=== PATIENT | female | born 1960 | race Caucasian/White ===

== ENCOUNTER 2021-07-07 10:33 | Emergency (ER) | payer OTHER ==
[~2021-07-07] VITALS: Ht 162.6 cm; Wt 90.0 kg
[2021-07-07 10:36] VITALS: BP 146/89
[2021-07-07] MEDS ORDERED: LIDOcaine 1% 30ml preserv. free vial IJ ONE (13:20)
[2021-07-07] MEDS ORDERED: DOXY-411 PO (13:23)
[2021-07-07] MEDS ORDERED: CIPR-202 PO (13:23)
== END 2021-07-07 14:13 | disposition home or self-care (01) ==
LOC: ER 10:33
DX: H61.001 Unspecified perichondritis of right external ear (principal); E11.9 Type 2 diabetes mellitus without complications; Z98.49 Cataract extraction status, unspecified eye; Z88.8 Allergy status to other drugs, medicaments and biological substances; Z79.2 Long term (current) use of antibiotics; Z79.899 Other long term (current) drug therapy
CPT/HCPCS: 10160; 69000; 99283; 99284

== ENCOUNTER 2021-07-10 10:35 | Emergency (ER) | payer OTHER ==
[~2021-07-10] VITALS: Ht 160 cm; Wt 90.0 kg
[~2021-07-10 10:35] MED LIST: CIPR-202 PO; DOXY-411 PO
[2021-07-10 11:01] VITALS: BP 155/92
== END 2021-07-11 00:50 | disposition left against medical advice (07) ==
LOC: ER 10:37
DX: H92.09 Otalgia, unspecified ear (principal); Z53.21 Procedure and treatment not carried out due to patient leaving prior to being seen by health care provider

== ENCOUNTER 2021-07-26 07:53 | Inpatient (IN) | payer OTHER ==
[~2021-07-26] VITALS: Ht 162.6 cm; Wt 95.0 kg
[~2021-07-26 07:53] MED LIST changes: -CIPR-202 PO; -DOXY-411 PO; +sevoflurane 250ml liquid IH ONE
--- NOTE | 2021-07-26 08:31 | NUR ---
pt states while driving to her sons she developed sudden stinging, cold pain behind left eye. Pt report reports developing left side facial numbness, and blurred vision. pt reports no change in these symptoms at this time. Pt shows unsteady gait w/ lean to left side. Pt reports recent ER visit 2 weeks ago for right external ear infection, pt finished abx course " a couple days ago."
[2021-07-26 09:06] LABS: APTT 24 SECONDS (22-32)
[2021-07-26 09:10] LABS: ALANINE AMINOTRANSFERASE 22 U/L (12-78); ALBUMIN 3.5 G/DL (3.4-5.0); ALKALINE PHOSPHATASE 83 IU/L (46-116); ANION GAP 9 (8-16); ASPARTATE AMINO TRANSFERASE 11 U/L (10-37); BILIRUBIN,TOTAL 0.4 MG/DL (0.1-1.0); BLOOD UREA NITROGEN 13 MG/DL (7-18); BUN/CREATININE RATIO 14.6 (6.6-38.0); CALCIUM 9.3 MG/DL (8.5-10.1); CHLORIDE 99 MMOL/L (99-107); CREATININE 0.89 MG/DL (0.40-0.90); GLUCOSE 397 MG/DL (70-104); POTASSIUM 3.9 MMOL/L (3.5-5.1); SODIUM 134 MMOL/L (135-145); TOTAL PROTEIN 7.1 G/DL (6.4-8.2); eGFR 64 ML/MIN
[2021-07-26] MEDS ORDERED: aspirin 325mg tablet PO ONE (09:10)
[2021-07-26 09:12] LABS: BASOPHILS # (AUTO) 0.1 X10'3 (0-0.2); BASOPHILS % (AUTO) 0.8 % (0-1); EOSINOPHILS # (AUTO) 0.6 X10'3 (0-0.9); EOSINOPHILS % (AUTO) 8.7 % (0-6); HEMOGLOBIN 13.9 g/dl (12.0-16.0); LYMPHOCYTES # (AUTO) 1.6 X10'3 (1.1-4.8); LYMPHOCYTES % (AUTO) 23.7 % (21-51); MEAN CORPUSCULAR HEMOGLOBIN 29.6 PG (27.0-31.0); MEAN CORPUSCULAR VOLUME 87.1 FL (78-98); MEAN PLATELET VOLUME 9.8 FL (7.4-10.4); MONOCYTES # (AUTO) 0.5 X10'3 (0-0.9); MONOCYTES % (AUTO) 7.8 % (2-12); NEUTROPHILS # (AUTO) 3.9 X10'3 (1.8-7.7); PLATELET COUNT 256 X10'3 (140-440); RED BLOOD COUNT 4.71 X10'6 (4.20-5.60); RED CELL DISTRIBUTION WIDTH 14.3 % (11.5-14.5); WHITE BLOOD COUNT 6.6 X10'3 (4.5-11.0)
[2021-07-26] MEDS ORDERED: iohexol 350MG/ML 100ml bottle IV ONE (09:28)
[2021-07-26] MEDS ORDERED: clopidogrel 300mg tablet PO ONE (10:55)
[2021-07-26] MEDS ORDERED: morphine 2 MG/ML inj. syringe IV PRN ×2 (13:40)
[2021-07-26] MEDS ORDERED: magnesium hydroxide 30ml (MOM) UD suspension PO PRN (13:40)
[2021-07-26] MEDS ORDERED: mag hydrox/Alum hydrox/simeth 30ml oral suspension PO PRN (13:40)
[2021-07-26] MEDS ORDERED: acetaminophen 325mg tablet PO PRN ×2 (13:40)
[2021-07-26] MEDS ORDERED: HYDROcodone/acetaminophen 5mg/325mg tablet PO PRN (13:40)
[2021-07-26 14:07] LABS: CHOL/HDL RATIO 4.9 (0.00-4.99); CHOLESTEROL 272 MG/DL (0-200); HDL CHOLESTEROL 56 MG/DL (35-60); LDL CHOLESTEROL 165 MG/DL (50-100); TRIGLYCERIDES 268 MG/DL (20-135)
[2021-07-26 15:06] LABS: HEMOGLOBIN A1C 9.8 % (4.5-6.2)
[2021-07-26] MEDS ORDERED: NO HOME MEDS (19:25)
[2021-07-26] MEDS: docusate sod 100mg capsule PO SCH (20:00)
[2021-07-26] MEDS: HYDROcodone/acetaminophen 10/325mg tab PO PRN (20:38)
--- NOTE | 2021-07-26 22:10 | NUR ---
Patient resting in bed. Complaint of right sided ear pain norco given. Vitals stable. Will continue to monitor.
[2021-07-27 07:31] LABS: BASOPHILS # (AUTO) 0.1 X10'3 (0-0.2); BASOPHILS % (AUTO) 0.9 % (0-1); EOSINOPHILS # (AUTO) 0.5 X10'3 (0-0.9); EOSINOPHILS % (AUTO) 8.1 % (0-6); HEMATOCRIT 41.1 % (35.0-45.0); HEMOGLOBIN 13.8 g/dl (12.0-16.0); LYMPHOCYTES # (AUTO) 1.8 X10'3 (1.1-4.8); LYMPHOCYTES % (AUTO) 27.7 % (21-51); MEAN CORPUSCULAR HEMOGLOBIN 29.2 PG (27.0-31.0); MEAN CORPUSCULAR HGB CONC 33.7 g/dL (33.0-36.5); MEAN CORPUSCULAR VOLUME 86.7 FL (78-98); MEAN PLATELET VOLUME 9.1 FL (7.4-10.4); MONOCYTES # (AUTO) 0.5 X10'3 (0-0.9); MONOCYTES % (AUTO) 7.9 % (2-12); NEUTROPHILS # (AUTO) 3.6 X10'3 (1.8-7.7); NEUTROPHILS % (AUTO) 55.4 % (42-75); PLATELET COUNT 252 X10'3 (140-440); RED BLOOD COUNT 4.74 X10'6 (4.20-5.60); WHITE BLOOD COUNT 6.5 X10'3 (4.5-11.0)
[2021-07-27 07:41] LABS: ALBUMIN 3.3 G/DL (3.4-5.0); ANION GAP 5 (8-16); BLOOD UREA NITROGEN 13 MG/DL (7-18); BUN/CREATININE RATIO 17.1 (6.6-38.0); CALCIUM 8.7 MG/DL (8.5-10.1); CHLORIDE 101 MMOL/L (99-107); CREATININE 0.76 MG/DL (0.40-0.90); GLUCOSE 283 MG/DL (70-104); POTASSIUM 4.3 MMOL/L (3.5-5.1); SODIUM 137 MMOL/L (135-145); TOTAL CARBON DIOXIDE 31.4 MMOL/L (24-32); eGFR 77 ML/MIN
[2021-07-27] MEDS: atorvastatin 20mg tablet PO SCH (10:03)
[2021-07-27] MEDS: docusate sod 100mg capsule PO SCH ×2 (10:03→20:00)
[2021-07-27] MEDS: aspirin 325mg tablet, delayed-release (Ecotrin) PO SCH (10:03)
[2021-07-27] MEDS: enoxaparin 40mg/0.4ml syringe SUBCUT SCH (10:03)
--- NOTE | 2021-07-27 10:22 | NUR ---
pt states she does not want the 5-lead ekg monitoring on as she plans to go home after her mri
[2021-07-27] MEDS ORDERED: dextrose 50%-water 50ml dispensing syringe IV PRN ×2 (13:50)
[2021-07-27] MEDS ORDERED: dextrose ORAL solution 15 GM/59 ML bottle PO PRN ×2 (13:50)
[2021-07-27] MEDS ORDERED: glucagon, human recombinant 1mg kit SUBCUT PRN (13:50)
--- NOTE | 2021-07-27 13:50 | NUR ---
spoke with dr alberts regarding pt elevated blood sugars due to diabetes. received verbal to initiate hyperglycemia protocol and order placed as received
[2021-07-27] MEDS: insulin Lispro (HumaLOG) vial - multi-dose SQ SCH ×2 (14:14→19:39)
[2021-07-27] MEDS: HYDROcodone/acetaminophen 10/325mg tab PO PRN ×2 (14:15→22:16)
[2021-07-27] MEDS: ondansetron/PF 4mg/2ml inj IV PRN (18:52)
--- NOTE | 2021-07-27 21:30 | NUR ---
Received report from LYNETTE Alnozo. Awaiting patient arrival to the floor
[2021-07-27 21:40] VITALS: BP 137/73
--- NOTE | 2021-07-27 22:00 | NUR ---
Patient refused DART at this time saying she needs sleep
[2021-07-27] MEDS: insulin glargine (Lantus) pen - multi-dose SQ SCH ×2 (22:15→22:33)
[2021-07-28] VITALS (10 sets, daily range): BP systolic 114–139; BP diastolic 64–84
[2021-07-28 06:23] LABS: BASOPHILS % (AUTO) 0.8 % (0-1); EOSINOPHILS # (AUTO) 0.5 X10'3 (0-0.9); EOSINOPHILS % (AUTO) 9.4 % (0-6); HEMATOCRIT 39.4 % (35.0-45.0); HEMOGLOBIN 13.5 g/dl (12.0-16.0); LYMPHOCYTES # (AUTO) 1.9 X10'3 (1.1-4.8); MEAN CORPUSCULAR HEMOGLOBIN 29.9 PG (27.0-31.0); MEAN CORPUSCULAR HGB CONC 34.4 g/dL (33.0-36.5); MONOCYTES # (AUTO) 0.5 X10'3 (0-0.9); MONOCYTES % (AUTO) 8.8 % (2-12); NEUTROPHILS # (AUTO) 2.7 X10'3 (1.8-7.7); PLATELET COUNT 229 X10'3 (140-440); RED BLOOD COUNT 4.53 X10'6 (4.20-5.60); RED CELL DISTRIBUTION WIDTH 13.9 % (11.5-14.5); WHITE BLOOD COUNT 5.7 X10'3 (4.5-11.0)
[2021-07-28 06:36] LABS: ALBUMIN 3.2 G/DL (3.4-5.0); ANION GAP 5 (8-16); BLOOD UREA NITROGEN 14 MG/DL (7-18); BUN/CREATININE RATIO 15.9 (6.6-38.0); CALCIUM 8.8 MG/DL (8.5-10.1); CHLORIDE 101 MMOL/L (99-107); CREATININE 0.88 MG/DL (0.40-0.90); GLUCOSE 236 MG/DL (70-104); POTASSIUM 4.5 MMOL/L (3.5-5.1); SODIUM 137 MMOL/L (135-145); TOTAL CARBON DIOXIDE 31.4 MMOL/L (24-32); eGFR 65 ML/MIN
--- NOTE | 2021-07-28 06:38 | NUR ---
Problems reprioritized. Patient report given, questions answered & plan of care reviewed with LYNETTE Reina.
[2021-07-28] MEDS: docusate sod 100mg capsule PO SCH ×3 (08:00→20:17)
[2021-07-28] MEDS: enoxaparin 40mg/0.4ml syringe SUBCUT SCH (08:02)
[2021-07-28] MEDS: atorvastatin 20mg tablet PO SCH (08:02)
[2021-07-28] MEDS: aspirin 325mg tablet, delayed-release (Ecotrin) PO SCH (08:02)
[2021-07-28] MEDS: insulin Lispro (HumaLOG) vial - multi-dose SQ SCH ×4 (09:28→23:39)
--- NOTE | 2021-07-28 10:42 | NUR ---
assisting RN with pt care, Dr Tinoco was at bedside to evaluate pt, gave verbal order for vanco for pharmacy to dose, zosyn 3.375 mb IV every 8 hours, wound care consult and CT of ear to eval infection, gave report to primary nurse, Nuno OJEDA
--- NOTE | 2021-07-28 10:59 | NUR ---
Dr Tinoco notified of need for plavix order received to start plavix after Dr Hong sees patients and he ok's use prior to possible surgery. Also ordered increase of lipitor to 80mg daily and decrease asa to 81mg daily.
[2021-07-28] MEDS: vancomycin/NS 1 GM ADD-VANTAGE 250 ML IV SCH ×2 (11:10→23:15)
--- NOTE | 2021-07-28 11:28 | NUR ---
Page Accepted promotional table spacer Message: [id number] GRACIELA. PLEASE CALL DR. NAVA [phone] FROM [facility] REGARDING MRI. Ashley [id number]
[2021-07-28] MEDS ORDERED: iohexol 300mg/ml 100ml inj. ONE (13:36)
[2021-07-28] MEDS: ondansetron/PF 4mg/2ml inj IV PRN (13:58)
[2021-07-28] MEDS ORDERED: ondansetron/PF 4mg/2ml inj IV PRN (14:30)
[2021-07-28] MEDS ORDERED: labetalol 20mg/4ml (5mg/ml) syringe IV PRN (14:30)
[2021-07-28] MEDS ORDERED: hydrALAZINE 20mg/ml inj. IV PRN (14:30)
[2021-07-28] MEDS ORDERED: fentaNYL/PF 50MCG/1 ML 2ML syringe IV PRN ×2 (14:30)
[2021-07-28] MEDS ORDERED: morphine 2 MG/ML inj. syringe IV PRN (14:30)
[2021-07-28] MEDS ORDERED: ringers solution, lacted 1,000 ML IV SCH (14:30)
--- NOTE | 2021-07-28 15:11 | NUR ---
DM Consult: Pt admit DX possible acute CVA hx T2DM A1C 9.8% w/ no PCP or health insurance unable to afford insulin per EMR. TG 268, Chol 272, and LDL 164 on admit. Pt currently NPO in surgery holding per EMR. Pt would benefit from DM/HH diet eds this admit prior to discharge. Will continue to monitor. Addendum: 07/28/21 at [address] Amended: Links added.
[2021-07-28] MEDS ORDERED: bacitracin 15gm ointment TP ONE (15:12)
[2021-07-28] MEDS ORDERED: midazolam 1 mg/ML 2ml injection ONE (15:36)
[2021-07-28] MEDS ORDERED: ondansetron/PF 4mg/2ml inj ONE (15:37)
[2021-07-28] MEDS ORDERED: propofol inj 20 ML IV ONE (15:37)
[2021-07-28] MEDS ORDERED: LIDOcaine 2% (20mg/ml) 5ml vial ONE (15:37)
--- NOTE | 2021-07-28 16:26 | NUR ---
Received from OR via BED IN STABLE CONDITION , accompanied by Anesthesiologist and PATROL JUDGE report given by PATROL JUDGE AND Anesthesiolgist. Addendum: 07/28/21 at 1734 by Marcelle Díaz RN Amended: Links added.
[2021-07-28] MEDS: morphine 4 MG/ML inj SYRINge IV PRN ×2 (16:54→17:23)
--- NOTE | 2021-07-28 17:26 | NUR ---
PATIENT DISCHARGED FROM PACU IN STABLE CONDITION AFTER RRPORT GIVEN TO RN TAKING OVER PATIENTS CARE. PATIENT TRANSFERRED TO ROOM 3015 VIA BED WITH RN. Addendum: 07/28/21 at 1734 by Marcelle Díaz RN Amended: Links added.
[2021-07-28] MEDS: piperacillin/tazo 3.375gm/50ml 50 ML IV SCH (18:01)
[2021-07-28] MEDS: HYDROcodone/acetaminophen 10/325mg tab PO PRN (20:39)
[2021-07-28] MEDS: insulin glargine (Lantus) pen - multi-dose SQ SCH (23:37)
[2021-07-29] MEDS: HYDROcodone/acetaminophen 10/325mg tab PO PRN ×3 (00:34→15:53)
[2021-07-29] MEDS: piperacillin/tazo 3.375gm/50ml 50 ML IV SCH ×3 (00:50→15:48)
[2021-07-29 02:00] VITALS: BP 122/64
--- NOTE | 2021-07-29 05:15 | NUR ---
Twice during the shift pt left her room to sit in the hallway due to c/o her roommate making too much noise preventing her from sleeping. Neurologically pt is stable, AAOx4, reports some improvement in her right facial numbness. Her bilateral hand grasps are strong. Her gait is slightly unsteady and she c/o that her leg bothering her is the reason her gait is as it is. At the time of observing her, she was walking in the hallway pushing her IV pole, and wearing scrubs pants that were somewhat long for her. She has been able to independently ambulate to the bathroom multiple times during the shift without difficulty Addendum: 07/29/21 at 0523 by Juli Bonner RN Charge nurse made aware of pt leaving her room for the above stated reasons
[2021-07-29 06:00] VITALS: BP 121/77
--- NOTE | 2021-07-29 06:30 | NUR ---
Change of shift report given to Abbie OJEDA Addendum: 07/29/21 at 0630 by Juli Bonner RN Amended: Links added.
--- NOTE | 2021-07-29 07:04 | NUR ---
Patient in room U 3015. I have received report from LYNETTE Bustos and had the opportunity to ask questions and assume patient care. Patient awake and in no acute distress. Patient expressed to night LYNETTE Bustos that she had wanted to leave AMA because she doesn't want to be in the same room as her roommate. I informed the patient that we had something in the works for the patient to be able to change rooms. The patient was very frustrated and walked down the hallway to try and get some sleep.
[2021-07-29] MEDS: docusate sod 100mg capsule PO SCH ×2 (08:00→19:47)
[2021-07-29] MEDS ORDERED: aspirin 325mg tablet, delayed-release (Ecotrin) PO SCH (08:00)
[2021-07-29] MEDS: clopidogrel 75mg tablet PO SCH (08:26)
[2021-07-29] MEDS: aspirin 81mg, enteric-coated 1 TAB TABLET.DR PO SCH (08:26)
[2021-07-29] MEDS: atorvastatin 20mg tablet PO SCH (08:27)
[2021-07-29] MEDS: enoxaparin 40mg/0.4ml syringe SUBCUT SCH (08:28)
[2021-07-29] MEDS: insulin Lispro (HumaLOG) vial - multi-dose SQ SCH ×2 (08:34→22:12)
[2021-07-29 09:10] LABS: BASOPHILS % (AUTO) 0.2 % (0-1); EOSINOPHILS % (AUTO) 0.1 % (0-6); HEMATOCRIT 39.9 % (35.0-45.0); HEMOGLOBIN 13.2 g/dl (12.0-16.0); LYMPHOCYTES # (AUTO) 1.1 X10'3 (1.1-4.8); LYMPHOCYTES % (AUTO) 14.8 % (21-51); MEAN CORPUSCULAR HGB CONC 33.1 g/dL (33.0-36.5); MEAN CORPUSCULAR VOLUME 87.6 FL (78-98); MEAN PLATELET VOLUME 9.4 FL (7.4-10.4); MONOCYTES # (AUTO) 0.3 X10'3 (0-0.9); MONOCYTES % (AUTO) 4.6 % (2-12); NEUTROPHILS # (AUTO) 5.7 X10'3 (1.8-7.7); NEUTROPHILS % (AUTO) 80.3 % (42-75); PLATELET COUNT 255 X10'3 (140-440); RED BLOOD COUNT 4.55 X10'6 (4.20-5.60); RED CELL DISTRIBUTION WIDTH 14.1 % (11.5-14.5); WHITE BLOOD COUNT 7.1 X10'3 (4.5-11.0)
[2021-07-29 09:30] LABS: ALBUMIN 3.1 G/DL (3.4-5.0); ANION GAP 8 (8-16); BLOOD UREA NITROGEN 17 MG/DL (7-18); BUN/CREATININE RATIO 17.9 (6.6-38.0); CALCIUM 8.6 MG/DL (8.5-10.1); CHLORIDE 99 MMOL/L (99-107); CREATININE 0.95 MG/DL (0.40-0.90); GLUCOSE 244 MG/DL (70-104); POTASSIUM 4.2 MMOL/L (3.5-5.1); SODIUM 135 MMOL/L (135-145); TOTAL CARBON DIOXIDE 27.9 MMOL/L (24-32); eGFR 60 ML/MIN
[2021-07-29 11:00] VITALS: BP 122/56
--- NOTE | 2021-07-29 11:20 | NUR ---
f/u 07/29: Pt noted to be agitated and somewhat uncooperative. Written DM/Heart Healthy diet ed w/ ALFIE contact info placed in pt chart. Addendum: 07/29/21 at [address] Amended: Links added.
[2021-07-29] MEDS: vancomycin/NS 1 GM ADD-VANTAGE 250 ML IV SCH ×2 (12:35→23:19)
--- NOTE | 2021-07-29 13:30 | NUR ---
For lunch, patient's blood sugar was 127 and refused her lunch. No humalog coverage given at this time.
--- NOTE | 2021-07-29 14:44 | NUR ---
WOUND INFECTION EDUCATION PROVIDED BY WOUND CARE 1. Patient instructed to call their primary doctor, or go the ED immediately if any of the following symptoms occur: * Increased pain in wound * Increase in drainage from the wound * Redness in the skin surrounding the wound * Warmth in the skin surrounding the wound * Bleeding from the wound * Temperature of 101 or greater 2. If any of these occur while in the hospital tell a nurse immediately. Addendum: 07/29/21 at 1445 by Chiara Adam RN Amended: Links added.
[2021-07-29] MEDS ORDERED: normal saline 1000ml 1,000 ML IV ONE (17:10)
--- NOTE | 2021-07-29 17:26 | NUR ---
Orders for tele neuro consult put in per Dr. Tinoco for phone consultation for them to review the MRI results for their recommendations.
[2021-07-29 18:00] VITALS: BP 141/75
[2021-07-29] MEDS ORDERED: amLODIPine 5mg tablet PO ONE (18:00)
--- NOTE | 2021-07-29 18:24 | NUR ---
Problems reprioritized. Patient report given, questions answered & plan of care reviewed with LYNETTE Barraza. Patient stable at transfer of care.
--- NOTE | 2021-07-29 18:54 | NUR ---
Gloria pt's niece called. enquiring about pt's condition, updated on current stable status, (her call back [phone]) Addendum: 07/29/21 at 1857 by Christi Bonner RN Wrong pt. Incorrectly documented, meant for another pt.
[2021-07-29] MEDS: lactobacillus rhamnosus 10,000 MMU CELLS/CAPSULE PO SCH (19:46)
[2021-07-29] MEDS: normal saline 1000ml 1,000 ML IV SCH (21:26)
[2021-07-29 22:00] VITALS: BP 127/63
[2021-07-29] MEDS: insulin glargine (Lantus) pen - multi-dose SQ SCH (22:14)
[2021-07-29] MEDS ORDERED: VANCOMYCIN LEVEL IV ONE (22:30)
--- NOTE | 2021-07-29 22:30 | NUR ---
Vanco level sent to lab, as per order.
[2021-07-30] MEDS: piperacillin/tazo 3.375gm/50ml 50 ML IV SCH ×2 (01:09→08:00)
[2021-07-30 02:00] VITALS: BP 115/70
[2021-07-30] MEDS: normal saline 1000ml 1,000 ML IV SCH (02:30)
[2021-07-30 06:00] VITALS: BP 112/68
--- NOTE | 2021-07-30 06:17 | NUR ---
Problems reprioritized. Patient report given, questions answered & plan of care reviewed with Justine.
--- NOTE | 2021-07-30 06:30 | NUR ---
Patient in room PCU 3015. I have received report from Christi Benavides RN and had the opportunity to ask questions and assume patient care.
[2021-07-30 07:04] LABS: BASOPHILS # (AUTO) 0.1 X10'3 (0-0.2); EOSINOPHILS # (AUTO) 0.4 X10'3 (0-0.9); EOSINOPHILS % (AUTO) 7.3 % (0-6); HEMATOCRIT 38.1 % (35.0-45.0); HEMOGLOBIN 12.7 g/dl (12.0-16.0); LYMPHOCYTES # (AUTO) 2.1 X10'3 (1.1-4.8); LYMPHOCYTES % (AUTO) 37.2 % (21-51); MEAN CORPUSCULAR HEMOGLOBIN 29.1 PG (27.0-31.0); MEAN CORPUSCULAR HGB CONC 33.4 g/dL (33.0-36.5); MEAN CORPUSCULAR VOLUME 87.4 FL (78-98); MEAN PLATELET VOLUME 9.3 FL (7.4-10.4); MONOCYTES # (AUTO) 0.4 X10'3 (0-0.9); MONOCYTES % (AUTO) 7.1 % (2-12); NEUTROPHILS # (AUTO) 2.6 X10'3 (1.8-7.7); NEUTROPHILS % (AUTO) 47.4 % (42-75); PLATELET COUNT 250 X10'3 (140-440); RED BLOOD COUNT 4.36 X10'6 (4.20-5.60); RED CELL DISTRIBUTION WIDTH 13.9 % (11.5-14.5); WHITE BLOOD COUNT 5.5 X10'3 (4.5-11.0)
[2021-07-30 07:32] LABS: ANION GAP 6 (8-16); BLOOD UREA NITROGEN 14 MG/DL (7-18); BUN/CREATININE RATIO 17.9 (6.6-38.0); CALCIUM 8.3 MG/DL (8.5-10.1); CHLORIDE 107 MMOL/L (99-107); CREATININE 0.78 MG/DL (0.40-0.90); GLUCOSE 117 MG/DL (70-104); MAGNESIUM 1.7 MG/DL (1.5-2.4); PHOSPHORUS 4.5 MG/DL (2.3-4.5); POTASSIUM 3.9 MMOL/L (3.5-5.1); SODIUM 142 MMOL/L (135-145); TOTAL CARBON DIOXIDE 28.7 MMOL/L (24-32); eGFR 75 ML/MIN
[2021-07-30] MEDS: enoxaparin 40mg/0.4ml syringe SUBCUT SCH (08:00)
[2021-07-30] MEDS: aspirin 81mg, enteric-coated 1 TAB TABLET.DR PO SCH (08:00)
[2021-07-30] MEDS: docusate sod 100mg capsule PO SCH (08:00)
[2021-07-30] MEDS ORDERED: lisinopril 10 MG tablet PO SCH (08:00)
[2021-07-30] MEDS ORDERED: amLODIPine 5mg tablet PO SCH (08:00)
[2021-07-30] MEDS: lactobacillus rhamnosus 10,000 MMU CELLS/CAPSULE PO SCH (08:00)
[2021-07-30] MEDS ORDERED: VANCOmycin 1250MG/NS 250ml Bag 250 ML IV SCH (09:00)
[2021-07-30] MEDS ORDERED: CLOP75TA34 PO (09:20)
[2021-07-30] MEDS ORDERED: CEPH-585 PO (09:20)
[2021-07-30] MEDS ORDERED: ATOR20TA66 PO (09:20)
[2021-07-30] MEDS ORDERED: AMA1T PO (09:20)
[2021-07-30] MEDS ORDERED: METF-1203 PO (09:20)
[2021-07-30] MEDS ORDERED: ASPI-1071 PO (09:20)
[2021-07-30] MEDS ORDERED: LINA5TAB4 PO (09:20)
[2021-07-30] MEDS ORDERED: LACT1CAP26 PO (09:20)
[2021-07-30] MEDS ORDERED: SULF1TAB49 PO (09:20)
[2021-07-30] MEDS: clopidogrel 75mg tablet PO SCH (10:19)
[2021-07-30 10:20] VITALS: BP_SYST 112
[2021-07-30] MEDS: atorvastatin 20mg tablet PO SCH (10:20)
--- NOTE | 2021-07-30 12:30 | NUR ---
Patient is stable for discharge per MD. Patient has been educated and given the opportunity to ask questions about her diagnosis and new medications. All questions answered. Patients PIV was removed with canula intact and telemetry was discontinued. Patient was walked down by a ACQUISITIONS ANALYST to her vehicle to drive home.
[2021-07-31] MEDS ORDERED: VANCOMYCIN LEVEL IV ONE (20:30)
== END 2021-07-30 12:48 | disposition home or self-care (01) | DRG 65 ==
LOC: ER 07:54 → ED HOLD 13:42 → EDBEDREQ 23:38 → PCU 3S 07-27 20:30
PROVIDERS: ADMIT Internal Medicine; ATTEND Internal Medicine
PROC: B3251ZZ Computerized Tomography (CT Scan) of Bilateral Common Carotid Arteries using Low Osmolar Contrast (ICD-10-PCS; 2021-07-26)
PROC: B32G1ZZ Computerized Tomography (CT Scan) of Bilateral Vertebral Arteries using Low Osmolar Contrast (ICD-10-PCS; 2021-07-26)
PROC: B32R1ZZ Computerized Tomography (CT Scan) of Intracranial Arteries using Low Osmolar Contrast (ICD-10-PCS; 2021-07-26)
PROC: B3281ZZ Computerized Tomography (CT Scan) of Bilateral Internal Carotid Arteries using Low Osmolar Contrast (ICD-10-PCS; 2021-07-26)
PROC: 09900ZZ Drainage of Right External Ear, Open Approach (ICD-10-PCS; principal; 2021-07-28 15:55)
DX: I63.9 Cerebral infarction, unspecified (principal); G45.0 Vertebro-basilar artery syndrome; E11.65 Type 2 diabetes mellitus with hyperglycemia; I10 Essential (primary) hypertension; H53.8 Other visual disturbances; R27.0 Ataxia, unspecified; H66.41 Suppurative otitis media, unspecified, right ear; S00.431A Contusion of right ear, initial encounter; X58.XXXA Exposure to other specified factors, initial encounter; Z20.822 Contact with and (suspected) exposure to COVID-19; Z79.02 Long term (current) use of antithrombotics/antiplatelets; Z79.82 Long term (current) use of aspirin; Z83.3 Family history of diabetes mellitus; Z91.14 Patient's other noncompliance with medication regimen; Z91.19 Patient's noncompliance with other medical treatment and regimen; Z88.5 Allergy status to narcotic agent; Z90.49 Acquired absence of other specified parts of digestive tract; Y93.89 Activity, other specified; Y92.89 Other specified places as the place of occurrence of the external cause; Y99.8 Other external cause status
CPT/HCPCS: 93306; 99285; Z7506; 36415; 70487; 70551; 71045; 80048; 80053; 80061; 80202; 82948; 83036; 83735; 83880; 84100; 84484; 85025; 85610; 85651; 85730; 87070; 87075; 87081; 87635; 93005; 97110; 97116; 97163; 97530; A4618; A6266; A6449; A7000; G0378; J1650; J1815; J2250; J2270; J2405; J2543; J2704; J3370; J3490; J7030; J7120; Q9967

== ENCOUNTER 2021-08-26 10:05 | Inpatient (IN) | payer OTHER ==
[2021-08-26] VITALS (9 sets, daily range): BP systolic 111–182; BP diastolic 63–156
[~2021-08-26] VITALS: Ht 162.6 cm; Wt 86.0 kg
[~2021-08-26 10:05] MED LIST changes: +AMA1T PO; +ASPI-1071 PO; +ATOR20TA66 PO; +CEPH-585 PO; +CLOP75TA34 PO; +LACT1CAP26 PO; +LINA5TAB4 PO; +METF-1203 PO; +SULF1TAB49 PO; -sevoflurane 250ml liquid IH ONE
[2021-08-26] MEDS ORDERED: normal saline 1000ML IV soln IV ONE (10:25)
[2021-08-26] MEDS ORDERED: aspirin 325mg tablet, delayed-release (Ecotrin) PO ONE (10:30)
[2021-08-26] MEDS ORDERED: ondansetron/PF 4mg/2ml inj IV ONE ×3 (10:30→15:10)
[2021-08-26 10:47] LABS: BASOPHILS # (AUTO) 0.1 X10'3 (0-0.2); BASOPHILS % (AUTO) 0.4 % (0-1); EOSINOPHILS # (AUTO) 0.3 X10'3 (0-0.9); EOSINOPHILS % (AUTO) 2.1 % (0-6); LYMPHOCYTES # (AUTO) 3.3 X10'3 (1.1-4.8); LYMPHOCYTES % (AUTO) 21.9 % (21-51); MEAN CORPUSCULAR HEMOGLOBIN 29.5 PG (27.0-31.0); MEAN CORPUSCULAR HGB CONC 31.8 g/dL (33.0-36.5); MEAN CORPUSCULAR VOLUME 92.7 FL (78-98); MEAN PLATELET VOLUME 9.5 FL (7.4-10.4); MONOCYTES % (AUTO) 6.6 % (2-12); NEUTROPHILS # (AUTO) 10.4 X10'3 (1.8-7.7); PLATELET COUNT 365 X10'3 (140-440); RED BLOOD COUNT 2.11 X10'6 (4.20-5.60); RED CELL DISTRIBUTION WIDTH 15.4 % (11.5-14.5)
[2021-08-26 10:52] LABS: HEMOGLOBIN 6.2 g/dl (12.0-16.0)
[2021-08-26 10:53] LABS: HEMATOCRIT 19.5 % (35.0-45.0)
[2021-08-26 10:58] LABS: ALANINE AMINOTRANSFERASE 20 U/L (12-78); ALBUMIN 3.3 G/DL (3.4-5.0); ALBUMIN/GLOBULIN RATIO 1.2 (1.1-1.5); ALKALINE PHOSPHATASE 61 IU/L (46-116); ANION GAP 23 (8-16); ASPARTATE AMINO TRANSFERASE 29 U/L (10-37); BILIRUBIN,TOTAL 0.5 MG/DL (0.1-1.0); BLOOD UREA NITROGEN 25 MG/DL (7-18); BUN/CREATININE RATIO 23.1 (6.6-38.0); CALCIUM 7.9 MG/DL (8.5-10.1); CHLORIDE 98 MMOL/L (99-107); CREATININE 1.08 MG/DL (0.40-0.90); GLUCOSE 356 MG/DL (70-104); MAGNESIUM 1.5 MG/DL (1.5-2.4); POTASSIUM 4.2 MMOL/L (3.5-5.1); SODIUM 135 MMOL/L (135-145); TOTAL PROTEIN 6.1 G/DL (6.4-8.2); eGFR 51 ML/MIN
--- NOTE | 2021-08-26 11:00 | NUR ---
ABOVE LAB REPORTED TO LYNETTE ROBLEDO AND REBEKA HERNANDEZ
--- NOTE | 2021-08-26 11:00 | NUR ---
LAB CALLED TROP 1366, HGB 6.2
[2021-08-26 11:02] LABS: TOTAL CARBON DIOXIDE 13.9 MMOL/L (24-32)
[2021-08-26] MEDS ORDERED: potassium Cl 20 mEq/100mL bag IV ONE (11:10)
[2021-08-26] MEDS ORDERED: potassium CL 10mEq/100ml bag 100 ML IV SCH (11:25)
[2021-08-26] MEDS ORDERED: tranexamic acid 1gm/0.7% sal. 100 ML IV ONE (11:40)
[2021-08-26] MEDS ORDERED: DESMOPRESSIN IV ONE (11:45)
[2021-08-26] MEDS ORDERED: NORMAL SALINE IV ONE (11:45)
--- NOTE | 2021-08-26 11:51 | NUR ---
Assuming care. Dr Costello aware of pt/VS
[2021-08-26] MEDS ORDERED: morphine 4 MG/ML inj SYRINge IV ONE ×2 (11:55→15:10)
[2021-08-26] MEDS ORDERED: pantoprazole 40MG/NS 100ML BAG 100 ML IV ONE (12:00)
[2021-08-26] MEDS: pantoprazole 40MG/NS 100ML BAG 100 ML IV SCH ×4 (12:01→21:00)
[2021-08-26 12:02] LABS: CLARITY,URINE CLEAR (Clear); COLOR,URINE YELLOW (Yellow); GLUCOSE, URINE >=1000 mg/dl (Neg); KETONES,URINE >=80 mg/dl (Neg); LEUKOCYTE ESTERASE ,URINE NEGATIVE (Neg); NITRITES, URINE NEGATIVE (Neg); OCCULT BLOOD,URINE NEGATIVE (Neg); PROTEIN,URINE NEGATIVE (Neg); UROBILINOGEN,URINE 0.2 E.U/dL (0.2-1.0)
--- NOTE | 2021-08-26 12:05 | NUR ---
per dr. millard hold transexamic acid and desmopressin for now.
[2021-08-26 12:11] LABS: APTT 20 SECONDS (22-32)
[2021-08-26 12:12] LABS: UA COLLECTION TYPE FOLEY CATH
[2021-08-26 12:14] LABS: BACTERIA,URINE FEW /HPF (Neg); RBC,URINE NONE SEEN /HPF (0-2); WBC,URINE 0-4 /HPF (0-4)
[2021-08-26 12:15] LABS: SQUAMOUS EPITHELIAL CELL,UR FEW /LPF (FEW)
[2021-08-26] MEDS ORDERED: iohexol 350MG/ML 100ml bottle IV ONE ×2 (12:24→12:58)
[2021-08-26] MEDS ORDERED: insulin regular, human 10 units/0.1 ml syringe IV ONE (12:25)
[2021-08-26] MEDS ORDERED: LORazepam 2 mg/ml vial IV ONE (12:45)
[2021-08-26] MEDS ORDERED: CefTRIAXone/D5W-Rocephin 1gm 50 ML IV ONE (13:15)
--- NOTE | 2021-08-26 13:33 | NUR ---
First unit of blood started now at 75 ml/hr, this RN at bedside. Pt has been to CT
--- NOTE | 2021-08-26 14:11 | NUR ---
Rate of blood increased to 200 ml/hr, pt tolerating well
[2021-08-26 14:24] LABS: ABG BASE EXCESS -16.3 mmol/L (-2.0-2.0); ABG HCO3 9.8 mmol/L (22.0-26.0); ABG OXYGEN SATURATION 93.8 % (94-97); ABG PCO2 (T) 23.8 mmHg (32.0-45.0); ABG PO2 (T) 83.6 mmHg (75.0-100.0); ALLEN'S TEST POSITIVE; FCOHb 0.4 % (0.0-3.9); FMetHb 0.5 % (0.0-1.5); PATIENT TEMPERATURE 36.4; TOTAL HEMOGLOBIN 6.9 G/dl (12.0-16.0)
[2021-08-26] MEDS ORDERED: METF-438 PO (14:31)
[2021-08-26] MEDS ORDERED: ASPI-1071 PO (14:31)
[2021-08-26] MEDS ORDERED: ATOR80TA PO (14:31)
[2021-08-26] MEDS ORDERED: ASPI-280 PO (14:31)
[2021-08-26] MEDS ORDERED: LISI5TAB22 PO (14:31)
[2021-08-26] MEDS ORDERED: GLIM2TAB6 PO (14:31)
[2021-08-26] MEDS ORDERED: LINA5TAB4 PO (14:31)
[2021-08-26] MEDS: MESSAGE TO NURSING PO SCH (15:23)
--- NOTE | 2021-08-26 15:36 | NUR ---
2ND UNIT OF BLOOD STARTED NOW AT 75 ML/HR, NURSE AT BEDSIDE
--- NOTE | 2021-08-26 16:02 | NUR ---
blood transfusion increased to 200ml/hr
[2021-08-26] MEDS ORDERED: bisacodyl 10mg suppository rectal RC PRN (16:05)
[2021-08-26] MEDS ORDERED: acetaminophen 325mg tablet PO PRN (16:05)
[2021-08-26] MEDS ORDERED: DEXTROSE 15 GM of carb/4 tabs (each vial/BOTTLE has 4 tablets) PO PRN ×2 (16:05)
[2021-08-26] MEDS ORDERED: glucagon, human recombinant 1mg kit SUBCUT PRN (16:05)
[2021-08-26] MEDS ORDERED: ondansetron/PF 4mg/2ml inj IV PRN (16:05)
[2021-08-26] MEDS ORDERED: magnesium 2GM in 50ml NS 50 ML IV PRN (16:05)
[2021-08-26] MEDS ORDERED: magnesium 4gm in 100ml NS 100 ML IV PRN (16:05)
[2021-08-26] MEDS ORDERED: MESSAGE TO PHARMACY PO ONE (16:05)
[2021-08-26] MEDS ORDERED: dextrose 50%-water 50ml dispensing syringe IV PRN ×2 (16:05)
[2021-08-26] MEDS ORDERED: potassium Cl 20 mEq SR tablet PO PRN ×2 (16:05)
[2021-08-26] MEDS ORDERED: PERFLUTREN PROTEIN-A MICROSPHR (Optison) 0.22 MG/ML 3ML VIAL IV PRN (16:05)
[2021-08-26] MEDS ORDERED: vancomycin/NS 1 GM ADD-VANTAGE 250 ML IV SCH (16:25)
--- NOTE | 2021-08-26 17:34 | NUR ---
Pt arrived to the floor from ED. Transferred from stretcher to bed. Protonix drip is going at 20ml/hr. Pt is alert, but very sleepy. Denies any chest pain presently. Oriented to room and call light.
[2021-08-26] MEDS: sodium bicarbonate (8.4%) inj. 150 MEQ in dextrose 5%-water 1,000 ML IV SCH (17:40)
--- NOTE | 2021-08-26 18:06 | NUR ---
Paged Dr. Cook regarding critical troponin PAGER ID: [phone] MESSAGE: [id number] Ely Cook, Critical Troponin just came back for this patient: [phone] Thanks, December RN PCU ext [phone]
[2021-08-26] MEDS: morphine 2 MG/ML inj. syringe IV PRN (19:16)
[2021-08-26] MEDS: K and/or MAG REPLACEMENT MC SCH (20:00)
[2021-08-26] MEDS: insulin Lispro (HumaLOG) vial - multi-dose SQ SCH (20:19)
[2021-08-26] MEDS: insulin glargine (Lantus) pen - multi-dose SQ SCH (21:00)
[2021-08-27] MEDS: pantoprazole 40MG/NS 100ML BAG 100 ML IV SCH ×5 (01:00→22:10)
[2021-08-27] MEDS: normal saline 1000ml 1,000 ML IV SCH ×2 (02:05→22:05)
[2021-08-27] MEDS: sodium bicarbonate (8.4%) inj. 150 MEQ in dextrose 5%-water 1,000 ML IV SCH ×2 (03:45→17:27)
[2021-08-27] MEDS: morphine 2 MG/ML inj. syringe IV PRN ×4 (03:47→20:02)
[2021-08-27] MEDS: VANCOMYCIN 1GM/200ML IVPB 200 ML IV SCH ×2 (04:00→17:27)
--- NOTE | 2021-08-27 05:49 | NUR ---
Eduardo herzog, pharmacy will bring it on their rounds.
[2021-08-27 06:00] VITALS: BP 92/52
[2021-08-27 06:48] LABS: BASOPHILS % (AUTO) 0.2 % (0-1); EOSINOPHILS # (AUTO) 0.2 X10'3 (0-0.9); EOSINOPHILS % (AUTO) 2.4 % (0-6); HEMOGLOBIN 7.3 g/dl (12.0-16.0); LYMPHOCYTES # (AUTO) 1.1 X10'3 (1.1-4.8); LYMPHOCYTES % (AUTO) 15.9 % (21-51); MEAN CORPUSCULAR HEMOGLOBIN 30.4 PG (27.0-31.0); MEAN CORPUSCULAR VOLUME 89.6 FL (78-98); MEAN PLATELET VOLUME 8.3 FL (7.4-10.4); MONOCYTES # (AUTO) 0.4 X10'3 (0-0.9); NEUTROPHILS # (AUTO) 5.2 X10'3 (1.8-7.7); NEUTROPHILS % (AUTO) 75.5 % (42-75); PLATELET COUNT 214 X10'3 (140-440); RED BLOOD COUNT 2.39 X10'6 (4.20-5.60); WHITE BLOOD COUNT 6.9 X10'3 (4.5-11.0)
[2021-08-27 06:58] LABS: HEMATOCRIT 21.4 % (35.0-45.0)
--- NOTE | 2021-08-27 07:09 | NUR ---
[address] [place]: Critical labs Hgb 7.3, htc 21.4. Reported to
[2021-08-27 07:16] LABS: ALANINE AMINOTRANSFERASE 30 U/L (12-78); ALBUMIN 2.8 G/DL (3.4-5.0); ALBUMIN/GLOBULIN RATIO 1.3 (1.1-1.5); ANION GAP 18 (8-16); ASPARTATE AMINO TRANSFERASE 102 U/L (10-37); BILIRUBIN,TOTAL 0.3 MG/DL (0.1-1.0); BLOOD UREA NITROGEN 14 MG/DL (7-18); BUN/CREATININE RATIO 17.5 (6.6-38.0); CALCIUM 6.6 MG/DL (8.5-10.1); CHLORIDE 103 MMOL/L (99-107); GLUCOSE 235 MG/DL (70-104); MAGNESIUM 1.5 MG/DL (1.5-2.4); SODIUM 142 MMOL/L (135-145); TOTAL CARBON DIOXIDE 21.3 MMOL/L (24-32); eGFR 72 ML/MIN
--- NOTE | 2021-08-27 07:18 | NUR ---
Patient in room PCU 3013. I have received report from Denice and had the opportunity to ask questions and assume patient care.
[2021-08-27] MEDS: MESSAGE TO NURSING PO SCH (08:00)
[2021-08-27] MEDS: K and/or MAG REPLACEMENT MC SCH ×2 (08:00→20:00)
[2021-08-27] MEDS ORDERED: CefTRIAXone/D5W-Rocephin 1gm 100 ML IV SCH (08:00)
[2021-08-27 11:00] VITALS: BP 105/53
[2021-08-27] MEDS: insulin Lispro (HumaLOG) vial - multi-dose SQ SCH ×3 (11:23→22:06)
[2021-08-27 14:24] LABS: HEMATOCRIT 22.3 % (35.0-45.0); HEMOGLOBIN 7.6 g/dl (12.0-16.0); MEAN CORPUSCULAR HEMOGLOBIN 30.3 PG (27.0-31.0); MEAN CORPUSCULAR HGB CONC 33.9 g/dL (33.0-36.5); MEAN CORPUSCULAR VOLUME 89.4 FL (78-98); MEAN PLATELET VOLUME 8.4 FL (7.4-10.4); PLATELET COUNT 202 X10'3 (140-440); RED CELL DISTRIBUTION WIDTH 14.9 % (11.5-14.5); WHITE BLOOD COUNT 7.8 X10'3 (4.5-11.0)
[2021-08-27 15:00] VITALS: BP 106/69
[2021-08-27 18:00] VITALS: BP 113/64
[2021-08-27 22:00] VITALS: BP 135/78
[2021-08-27] MEDS: insulin glargine (Lantus) pen - multi-dose SQ SCH (22:04)
--- NOTE | 2021-08-27 23:12 | NUR ---
Patient requested med to help her sleep page Dr Mireles awaiting authors motivational back.
[2021-08-28] VITALS (10 sets, daily range): BP systolic 90–127; BP diastolic 44–89
[2021-08-28] MEDS: morphine 2 MG/ML inj. syringe IV PRN ×3 (01:17→21:45)
[2021-08-28] MEDS ORDERED: temazepam 15mg capsule PO ONE (01:20)
[2021-08-28] MEDS: pantoprazole 40MG/NS 100ML BAG 100 ML IV SCH ×4 (01:20→21:42)
[2021-08-28] MEDS: sodium bicarbonate (8.4%) inj. 150 MEQ in dextrose 5%-water 1,000 ML IV SCH (02:45)
[2021-08-28] MEDS ORDERED: VANCOMYCIN LEVEL IV ONE (03:30)
--- NOTE | 2021-08-28 03:47 | NUR ---
Patient is a very hard stick unable to obtain blood call placed to lab spoke with Bill awaiting on tech to draw blood.
[2021-08-28 05:14] LABS: BASOPHILS % (AUTO) 0.4 % (0-1); EOSINOPHILS # (AUTO) 0.4 X10'3 (0-0.9); EOSINOPHILS % (AUTO) 5.4 % (0-6); HEMATOCRIT 23.1 % (35.0-45.0); HEMOGLOBIN 7.7 g/dl (12.0-16.0); LYMPHOCYTES # (AUTO) 0.9 X10'3 (1.1-4.8); LYMPHOCYTES % (AUTO) 12.9 % (21-51); MEAN CORPUSCULAR HGB CONC 33.4 g/dL (33.0-36.5); MEAN CORPUSCULAR VOLUME 89.7 FL (78-98); MEAN PLATELET VOLUME 8.2 FL (7.4-10.4); MONOCYTES # (AUTO) 0.4 X10'3 (0-0.9); MONOCYTES % (AUTO) 5.9 % (2-12); NEUTROPHILS # (AUTO) 5.3 X10'3 (1.8-7.7); NEUTROPHILS % (AUTO) 75.4 % (42-75); PLATELET COUNT 213 X10'3 (140-440); RED BLOOD COUNT 2.57 X10'6 (4.20-5.60); RED CELL DISTRIBUTION WIDTH 14.8 % (11.5-14.5)
[2021-08-28 05:25] LABS: ALANINE AMINOTRANSFERASE 25 U/L (12-78); ALBUMIN 2.6 G/DL (3.4-5.0); ALBUMIN/GLOBULIN RATIO 1.1 (1.1-1.5); ALKALINE PHOSPHATASE 63 IU/L (46-116); ANION GAP 11 (8-16); ASPARTATE AMINO TRANSFERASE 60 U/L (10-37); BILIRUBIN,TOTAL 0.3 MG/DL (0.1-1.0); BLOOD UREA NITROGEN 6 MG/DL (7-18); CALCIUM 6.9 MG/DL (8.5-10.1); CHLORIDE 102 MMOL/L (99-107); CREATININE 0.75 MG/DL (0.40-0.90); GLUCOSE 206 MG/DL (70-104); MAGNESIUM 1.3 MG/DL (1.5-2.4); POTASSIUM 3.3 MMOL/L (3.5-5.1); SODIUM 141 MMOL/L (135-145); TOTAL CARBON DIOXIDE 28.1 MMOL/L (24-32); TOTAL PROTEIN 4.9 G/DL (6.4-8.2); VANCOMYCIN,TROUGH 5.1 UG/ML (6.0-14.0); eGFR 78 ML/MIN
[2021-08-28] MEDS: VANCOMYCIN 1GM/200ML IVPB 200 ML IV SCH (05:25)
[2021-08-28] MEDS ORDERED: MIDAZolam 1 MG/ML 5ML VIAL ONE (07:15)
[2021-08-28] MEDS ORDERED: fentaNYL/PF 50MCG/1 ML 2ML syringe ONE (07:15)
[2021-08-28] MEDS ORDERED: diphenhydrAMINE 50 mg/ml inj ONE (07:17)
[2021-08-28] MEDS: MESSAGE TO NURSING PO SCH (08:00)
[2021-08-28] MEDS: K and/or MAG REPLACEMENT MC SCH ×2 (08:00→19:19)
[2021-08-28] MEDS ORDERED: CefTRIAXone/D5W-Rocephin 1gm 50 ML IV SCH (08:00)
[2021-08-28] MEDS ORDERED: PEG 3350/Na sulf,bicarb,Cl/KCl oral sol 4 liter bottle PO ONE (09:15)
[2021-08-28] MEDS: normal saline 1000ml 1,000 ML IV SCH (11:08)
[2021-08-28] MEDS: lisinopril 5mg tablet PO SCH (11:31)
[2021-08-28] MEDS ORDERED: VANCOMYCIN 1GM/200ML IVPB 200 ML IV SCH (13:00)
[2021-08-28] MEDS: insulin Lispro (HumaLOG) vial - multi-dose SQ SCH (13:58)
[2021-08-28] MEDS: insulin glargine (Lantus) pen - multi-dose SQ SCH (21:37)
[2021-08-28] MEDS: potassium CL 10mEq/100ml bag 100 ML IV PRN (21:42)
[2021-08-29 02:00] VITALS: BP 101/73
[2021-08-29] MEDS: normal saline 1000ml 1,000 ML IV SCH (02:00)
[2021-08-29] MEDS: potassium CL 10mEq/100ml bag 100 ML IV PRN (02:02)
[2021-08-29] MEDS: morphine 2 MG/ML inj. syringe IV PRN (03:51)
[2021-08-29] MEDS ORDERED: VANCOMYCIN LEVEL IV ONE (04:30)
[2021-08-29 06:00] VITALS: BP 102/61
[2021-08-29 06:55] LABS: BASOPHILS % (AUTO) 0.4 % (0-1); EOSINOPHILS # (AUTO) 0.4 X10'3 (0-0.9); EOSINOPHILS % (AUTO) 5.8 % (0-6); HEMATOCRIT 23.7 % (35.0-45.0); LYMPHOCYTES % (AUTO) 14.2 % (21-51); MEAN CORPUSCULAR HEMOGLOBIN 30.1 PG (27.0-31.0); MEAN CORPUSCULAR HGB CONC 33.7 g/dL (33.0-36.5); MEAN CORPUSCULAR VOLUME 89.4 FL (78-98); MEAN PLATELET VOLUME 8.3 FL (7.4-10.4); MONOCYTES # (AUTO) 0.5 X10'3 (0-0.9); MONOCYTES % (AUTO) 6.9 % (2-12); NEUTROPHILS # (AUTO) 5.2 X10'3 (1.8-7.7); NEUTROPHILS % (AUTO) 72.7 % (42-75); PLATELET COUNT 240 X10'3 (140-440); RED BLOOD COUNT 2.65 X10'6 (4.20-5.60); RED CELL DISTRIBUTION WIDTH 15.7 % (11.5-14.5); WHITE BLOOD COUNT 7.1 X10'3 (4.5-11.0)
[2021-08-29 07:01] LABS: ALANINE AMINOTRANSFERASE 22 U/L (12-78); ALBUMIN 2.6 G/DL (3.4-5.0); ALKALINE PHOSPHATASE 68 IU/L (46-116); ANION GAP 9 (8-16); ASPARTATE AMINO TRANSFERASE 34 U/L (10-37); BILIRUBIN,TOTAL 0.3 MG/DL (0.1-1.0); BLOOD UREA NITROGEN 4 MG/DL (7-18); CALCIUM 7.5 MG/DL (8.5-10.1); CHLORIDE 102 MMOL/L (99-107); CREATININE 0.67 MG/DL (0.40-0.90); GLUCOSE 257 MG/DL (70-104); MAGNESIUM 1.5 MG/DL (1.5-2.4); POTASSIUM 3.7 MMOL/L (3.5-5.1); SODIUM 140 MMOL/L (135-145); TOTAL CARBON DIOXIDE 28.6 MMOL/L (24-32); TOTAL PROTEIN 5.3 G/DL (6.4-8.2); VANCOMYCIN,TROUGH 5.6 UG/ML (6.0-14.0); eGFR 89 ML/MIN
[2021-08-29] MEDS: K and/or MAG REPLACEMENT MC SCH (08:00)
[2021-08-29] MEDS ORDERED: HYDROcodone/acetaminophen 5mg/325mg tablet PO PRN (09:25)
[2021-08-29] MEDS: lisinopril 5mg tablet PO SCH (09:48)
[2021-08-29] MEDS: insulin Lispro (HumaLOG) vial - multi-dose SQ SCH (09:51)
[2021-08-29] MEDS: pantoprazole 40MG/NS 100ML BAG 100 ML IV SCH (09:53)
[2021-08-29] MEDS ORDERED: PANT-47 PO (12:24)
[2021-08-29] MEDS ORDERED: GLIM4TAB7 PO (12:24)
[2021-08-29 15:00] VITALS: BP 95/58
== END 2021-08-29 15:20 | disposition home or self-care (01) | DRG 871 ==
LOC: ER 10:05 → ED HOLD 16:12 → PCU 3S 17:17
PROVIDERS: ADMIT Family Medicine; ATTEND Family Medicine
PROC: 30233N1 Transfusion of Nonautologous Red Blood Cells into Peripheral Vein, Percutaneous Approach (ICD-10-PCS; principal; 2021-08-26)
PROC: B32T1ZZ Computerized Tomography (CT Scan) of Left Pulmonary Artery using Low Osmolar Contrast (ICD-10-PCS; 2021-08-26)
PROC: B3201ZZ Computerized Tomography (CT Scan) of Thoracic Aorta using Low Osmolar Contrast (ICD-10-PCS; 2021-08-26)
PROC: B32S1ZZ Computerized Tomography (CT Scan) of Right Pulmonary Artery using Low Osmolar Contrast (ICD-10-PCS; 2021-08-26)
PROC: B4201ZZ Computerized Tomography (CT Scan) of Abdominal Aorta using Low Osmolar Contrast (ICD-10-PCS; 2021-08-26)
PROC: B4241ZZ Computerized Tomography (CT Scan) of Superior Mesenteric Artery using Low Osmolar Contrast (ICD-10-PCS; 2021-08-26)
PROC: B4281ZZ Computerized Tomography (CT Scan) of Bilateral Renal Arteries using Low Osmolar Contrast (ICD-10-PCS; 2021-08-26)
PROC: B42C1ZZ Computerized Tomography (CT Scan) of Pelvic Arteries using Low Osmolar Contrast (ICD-10-PCS; 2021-08-26)
PROC: B42H1ZZ Computerized Tomography (CT Scan) of Bilateral Lower Extremity Arteries using Low Osmolar Contrast (ICD-10-PCS; 2021-08-26)
PROC: B4211ZZ Computerized Tomography (CT Scan) of Celiac Artery using Low Osmolar Contrast (ICD-10-PCS; 2021-08-26)
PROC: 0DB98ZX Excision of Duodenum, Via Natural or Artificial Opening Endoscopic, Diagnostic (ICD-10-PCS; 2021-08-28)
PROC: 0DB68ZX Excision of Stomach, Via Natural or Artificial Opening Endoscopic, Diagnostic (ICD-10-PCS; 2021-08-28)
DX: A41.9 Sepsis, unspecified organism (principal); I21.A1 Myocardial infarction type 2; D62 Acute posthemorrhagic anemia; E87.2 Acidosis; K92.2 Gastrointestinal hemorrhage, unspecified; Z20.822 Contact with and (suspected) exposure to COVID-19; D72.823 Leukemoid reaction; E11.65 Type 2 diabetes mellitus with hyperglycemia; F12.90 Cannabis use, unspecified, uncomplicated; I49.3 Ventricular premature depolarization; K25.9 Gastric ulcer, unspecified as acute or chronic, without hemorrhage or perforation; E87.6 Hypokalemia; Z79.02 Long term (current) use of antithrombotics/antiplatelets; Z79.82 Long term (current) use of aspirin; Z79.84 Long term (current) use of oral hypoglycemic drugs; Z80.0 Family history of malignant neoplasm of digestive organs; Z83.3 Family history of diabetes mellitus; Z86.16 Personal history of COVID-19; Z86.73 Personal history of transient ischemic attack (TIA), and cerebral infarction without residual deficits; Z87.11 Personal history of peptic ulcer disease; Z98.84 Bariatric surgery status; Z91.14 Patient's other noncompliance with medication regimen; Z90.49 Acquired absence of other specified parts of digestive tract; Z88.5 Allergy status to narcotic agent; Z79.899 Other long term (current) drug therapy
CPT/HCPCS: 36415; 36430; 36600; 43239; 71045; 71275; 74174; 80053; 80202; 81001; 82803; 82948; 83605; 83735; 84132; 84145; 84484; 85018; 85025; 85027; 85610; 85730; 86885; 86900; 86901; 86920; 87040; 87502; 87503; 87635; 93005; 93308; 96361; 96365; 96367; 96375; 96376; 99152; 99291; 99292; A4620; C9113; C9803; G0378; J0696; J1200; J1815; J2060; J2250; J2270; J2405; J3010; J3370; J3480; J3490; J7030; J7040; J7070; P9016; Q9967